=== PATIENT | female | born 1955 | race Caucasian/White ===

== ENCOUNTER 2019-08-24 17:11 | Emergency (ER) | payer MEDICARE, BC, SELFPAY ==
--- NOTE | ~2019-08-24 | CT_ITS ---
EXAMINATION: CT abdomen pelvis w con DATE: 08/24/2019 18:12 INDICATION: Generalized abdominal pain TECHNIQUE: Computed tomography (CT) of the abdomen and pelvis was performed with 100 cc Omnipaque 350 intravenous contrast. The dose-length product was 179.77 mGy-cm. Automated exposure control and iter ative reconstruction technique were employed. COMPARISON: Ultrasound dated 04/29/2018 FINDINGS: Lung bases unremarkable. Heart size normal. No significant vascular abnormality. There is intrahepatic and extrahepatic biliary dilatation. No definite gallstones. No obstructing sto ne or mass identified. There are calcified granulomas of the spleen. There are multiple dilated loops of small bowel and colon there is mesenteric edema. The bladder is severely distended. There are sma ll subcentimeter hypodensities of the kidneys, most likely benign cysts. The adrenal glands are unrem arkable. No loculated fluid collections to suggest abscess. No free air. There is mild dextroscoliosi s. No suspicious osteolytic or osteoblastic lesions. IMPRESSION: 1. Dilated fluid-filled small bowel and colon which may relate to ileus or enterocolitis. 2: Mesenteric edema, nonspecific. 3: Mild intrahepatic and extrahepatic biliary dilatation. No definite obstructing stone or mass ident ified. Consider correlation with MRCP. 4: Severe bladder distention. Reviewed, dictated and finalized at location A. IMPRESSION: 1. Dilated fluid-filled small bowel and colon which may relate to ileus or ente rocolitis. 2: Mesenteric edema, nonspecific. 3: Mild intrahepatic and extrahepatic biliary dilatation. No definite obstructi ng stone or mass identified. Consider correlation with MRCP. 4: Severe bladder distention.
[2019-08-24 17:14] VITALS: BP 131/81; PULSE 70; RESP 15; TEMP 36.4; O2SAT 100
[2019-08-24 17:27] LABS: Basophils Absolute Auto 0.1 K/mm3 (0.0-0.1); Eosinophils Absolute Auto 0.1 K/mm3 (0-0.3); Eosinophils Percent Auto 2.9 % (0-4.4); Hematocrit 33.3 % (37.0-47.0); Hemoglobin 11.5 g/dL (12.0-15.0); Immature Granulocyte Absolute 0.02 K/mm3 (0.00-0.031); Immature Granulocyte Percent A 0.4 % (0-0.5); Lymphocytes Percent Auto 29.2 % (18.3-44.2); Mean Corpuscular HGB Conc 34.5 g/dl (32-36); Mean Corpuscular Hemoglobin 32.7 pg (26-34); Mean Corpuscular Volume 94.6 fl (80-100); Mean Platelet Volume 9.8 fl (7.4-10.4); Monocytes Absolute Auto 0.4 K/mm3 (0.1-0.6); Monocytes Percent Auto 8.1 % (2.6-8.5); Neutrophils Absolute Auto 2.8 K/mm3 (1.3-6.7); Neutrophils Percent Auto 58.4 % (45.5-73.1); Platelet Count Result 176 k/mm3 (150-375); Red Blood Count 3.52 M/mm3 (4.2-5.4); Red Cell Distribution Width 12.5 % (11.5-14.5); White Blood Count 4.8 K/mm3 (4.5-10.0)
[2019-08-24] MEDS: ONDANSETRON INJ 4 MG/2 ML VIAL IV PUSH (17:36)
[2019-08-24] MEDS: FAMOTIDINE 20 MG/2 ML VIAL IV PUSH (17:36)
[2019-08-24] MEDS: SODIUM CHLORIDE 0.9% IV 1,000 ML 999 ML IV CONT (17:37)
[2019-08-24 17:52] VITALS: BP 117/63; PULSE 88; RESP 15; O2SAT 98
[2019-08-24 18:01] LABS: Alanine Aminotransferase 21 U/L (4-35); Albumin Level 4.5 g/dL (3.5-5.1); Alkaline Phosphatase 41 U/L (38-126); Aspartate Amino Transferase 37 U/L (14-36); Bilirubin,Total 0.5 mg/dL (0.2-1.3); Blood Urea Nitrogen 9 mg/dL (7-17); Calcium 9.1 mg/dL (8.4-10.2); Carbon Dioxide 28 mmol/L (22-30); Chloride 99 mmol/L (98-107); Estimated CRCL calculation 57 ml/min; Estimated Glomerular Filt Rate > 60; Glucose 109 mg/dL (65-105); Lipase 142 U/L (23-300); Potassium 3.6 mmol/L (3.4-5.0); Sodium 136 mmol/L (137-145)
[2019-08-24 18:20] LABS: Estimated CRCL calculation 44 ml/min; Estimated Glomerular Filt Rate > 60
--- NOTE | 2019-08-24 18:26 | ED.ABDPAIN ---
HPI - Abdominal Pain General Chief Complaint: Abdominal Pain Stated Complaint: abd pain Source: patient Mode of arrival: EMS Limitations: no limitations History of Present Illness HPI narrative: Patient is a 64-year-old female who presents to emergency department for evaluation of abdominal pain that began today that began in the upper abdomen is now localized to the lower abdomen denies any vomiting diarrhea patient that she may have had a similar occurrence in the past which resolved spontaneously patient has not been seen for this complaint and presented per private vehicle. Patient otherwise notes that she has been drinking about a half a bottle of wine per day denies any alcohol intoxication today patient denies rectal bleeding or melena. Patient has not taken anything for symptoms. Related Data Allergies Allergy/AdvReac Type Severity Reaction Status Date / Time No Known Allergies Allergy Unverified 10/12/15 18:07 Review of Systems Review of Systems: All systems reviewed & are unremarkable except as noted in HPI and below PMFSH Surgical History Surgical History (Updated 08/24/19 @ 18:31 by Cb Carlton PA-C) History of orthopedic surgery Social History Social History (Updated 08/24/19 @ 18:31 by Cb Carlton PA-C) Alcohol intake: current Exam Narrative: Exam Narrative: GENERAL: Well-appearing, well-nourished, and in no acute distress. HEAD: Normocephalic, atraumatic. EYES: PERRLA and EOMI. ENT: Nares clear, no rhinorrhea or epistaxis. Mucous membranes moist. CHEST: Clear to auscultation. No respiratory distress. No wheezes rales or rhonchi HEART: Regular rate and rhythm. No murmur heard. Normal peripheral pulses. ABDOMEN: Soft, generalized tenderness, nondistended EXTREMITIES: Normal range of motion. No edema. SKIN: Warm, dry, no rash. NEURO: No focal deficits. Alert and oriented x3. Cranial nerves II through XII grossly intact PSYCH: Normal mood and affect. Course Course Emergency Course: Patient in the room in no distress resting comfortably aware of case findings treatment plan and diagnosis no high risk changes in the blood work or imaging resting comfortably felt appropriate for outpatient reevaluation. Patient agreeing to follow-up with primary care was hydrated and given medications in the emergency department with improvement Patient's abdomen no longer tender noting that her pain is resolved patient would like to be discharged home and notes that she will return if symptoms worsen Vital Signs Vital signs: Vital Signs Temperature 97.6 F 08/24/19 17:14 Pulse Rate 70 08/24/19 17:14 Respiratory Rate 15 08/24/19 17:14 Blood Pressure 131/81 08/24/19 17:14 Pulse Oximetry 100 08/24/19 17:14 Temperature 98.1 F 08/24/19 18:45 Pulse Rate 66 08/24/19 20:01 Respiratory Rate 20 08/24/19 20:01 Blood Pressure 100/64 08/24/19 20:01 Pulse Oximetry 100 08/24/19 20:01 MDM - Abdominal Pain MDM Narrative Medical decision making narrative: Patient in the room at this time in no distress aware of case findings treatment plan and diagnosis possible gastritis enteritis as the etiology of her symptoms patient resting comfortably in the room in no distress nontoxic-appearing without emesis with improvement with medications felt appropriate for outpatient reevaluation Lab Data Result diagrams: 08/24/19 17:20 08/24/19 18:02 Labs: Lab Results 08/24/19 08/24/19 08/24/19 Range/Units 17:20 17:45 18:02 WBC 4.8 (4.5-10.0) K/mm3 RBC 3.52 L (4.2-5.4) M/mm3 Hgb 11.5 L (12.0-15.0) g/dL Hct 33.3 L (37.0-47.0) % MCV 94.6 (80-100) fl MCH 32.7 (26-34) pg MCHC 34.5 (32-36) g/dl RDW 12.5 (11.5-14.5) % Plt Count 176 (150-375) k/mm3 MPV 9.8 (7.4-10.4) fl Immature Gran % (Auto) 0.4 (0-0.5) % Neut % (Auto) 58.4 (45.5-73.1) % Lymph % (Auto) 29.2 (18.3-44.2) % [place] % (Auto) 8.1 (2.6
[2019-08-24 18:45] VITALS: BP 111/74; PULSE 69; RESP 10; TEMP 36.7; O2SAT 100
[2019-08-24 18:58] LABS: Add Urine Microscopic? YES; Appearance Urine Clear (Clear); Bacteria Urine Trace /hpf; Bilirubin Urine Negative (Negative); Blood Urine 1+ (Negative); Color Urine Colorless (Yellow); Glucose Urine UA Negative (Negative); Ketones Urine Trace mg/dL (Negative); Leukocyte Esterase Ur Trace LEU/UL (Negative); Mucus Urine Rare /lpf; Nitrate Urine Negative (Negative); Protein Urine Negative (Negative); RBC Urine 0-2 /hpf (0-2); Specific Grav Ur 1.015 (1.001-1.035); Squamous Epithelial Cell Urine Rare /hpf (Few); Urobilinogen Urine Negative mg/dL (<2.0); WBC Urine 0-3 /hpf
[2019-08-24 20:01] VITALS: BP 100/64; PULSE 66; RESP 20; O2SAT 100
[2019-08-24 20:20] VITALS: BP 100/64; PULSE 66; RESP 20; O2SAT 100
== END 2019-08-24 20:27 | disposition home or self-care (01) ==
PROVIDERS: Emergency Provider Emergency Medicine; PCP Family Medicine
DX: R10.30 Lower abdominal pain, unspecified (principal); R93.3 Abnormal findings on diagnostic imaging of other parts of digestive tract; R93.2 Abnormal findings on diagnostic imaging of liver and biliary tract; R93.41 Abnormal radiologic findings on diagnostic imaging of renal pelvis, ureter, or bladder
CPT/HCPCS: 36415; 74177; 80053; 81001; 83690; 85025; 96361; 96374; 96375; 99284; J0131; J2405; J7030; Q9967